=== PATIENT | male | born 1955 | race Caucasian/White ===

== ENCOUNTER 2017-08-12 19:00 | Observation (INO) | payer OTHER, SELFPAY ==
[~2017-08-12 19:00] MED LIST: ISOVUE-370 76%-LOCM 1 ML ONE
[2017-08-12 19:21] LABS: #Basophils 0.1 thou/uL (0.0-0.2); #Eosinphils 0.3 thou/uL (0.0-0.7); #Lymphocytes 1.8 thou/uL (1.20-3.40); #Monocytes 0.4 thou/uL (0.11-0.59); #Neutrophils 5.3 thou/uL (1.40-6.50); %Basophils 0.8 % (0.0-1.0); %Eosinophils 3.8 % (0.0-10.0); %Lymphocytes 23.4 % (21.0-51.0); %Monocytes 4.7 % (0.0-10.0); %Neutrophils 67.3 % (42.0-75.0); Hemoglobin 15.1 g/dL (14.0-18.0); Mean Corpuscular HGB CONC 33.8 g/dL (32.0-36.0); Mean Corpuscular Hemoglobin 32.8 pg (27.0-31.0); Platelet Count 253 thou/uL (130-400); Red Blood Cell (RBC) Count 4.59 mill/uL (4.70-6.10); White Blood Cell (WBC) Count 7.8 thou/uL (4.8-10.8)
[2017-08-12 19:29] LABS: PTT 27.3 SEC (22.9-36.1); Prothrombin Time 12.9 SEC (12.0-14.7)
[2017-08-12] MEDS ORDERED: Ondansetron HCl/PF 4 MG/2 ML Vial ONE (19:47)
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
[2017-08-12 19:49] LABS: ALT (SGPT) 15 U/L (8-55); AST (SGOT) 23 U/L (5-34); Albumin 4.7 g/dL (3.5-5.0); Alkaline Phosphatase 128 U/L (40-150); Anion Gap 15 mmol/L (10-20); BUN (Urea Nitrogen) 14 mg/dL (8.4-25.7); Bilirubin, Total 1.3 mg/dL (0.2-1.2); Calc. Creatinine Clearance 0 mL/min (70-130); Calcium 9.3 mg/dL (7.8-10.44); Carbon Dioxide 22 mmol/L (22-29); Chloride 109 mmol/L (98-107); Estimated GFR-MDRD Greater than 90; Globulin 2.8 g/dL (2.4-3.5); Glucose 86 mg/dL (70-105); Lipase 30 U/L (8-78); Potassium 4.1 mmol/L (3.5-5.1); Protein, Total 7.5 g/dL (6.0-8.3); Sodium 142 mmol/L (136-145)
[2017-08-12] MEDS ORDERED: Fentanyl 100 MCG/2 ML VIAL ONE (20:01)
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
[2017-08-12 20:07] LABS: Bilirubin Negative (Negative); Blood, Urine Negative (Negative); Clarity CLEAR (Clear); Glucose, Urine (Dipstick) Negative (Negative); Leukocyte Negative (Negative); Nitrite Negative (Negative); Protein, Urine (Dipstick) Negative (Neg-Trace); Specific Gravity, Urine 1.018 (1.002-1.036); Urobilinogen 0.2 mg/dL (0.2-1.0)
[2017-08-12 20:38] LABS: Medtox Reader # READER 4
[2017-08-12 20:39] LABS: Amphetamine Not Detected (NotDetected); Barbiturates Screen Not Detected (NotDetected); Benzodiazepine Screen Not Detected (NotDetected); Cocaine Metabolite Screen Not Detected (NotDetected); Medtox Control Line Valid? VALID (VALID); Methadone Not Detected (NotDetected); Methamphetamine Not Detected (NotDetected); Opiate Screen Not Detected (NotDetected); Oxycodone Screen Not Detected (NotDetected); Phencyclidine (PCP) Not Detected (NotDetected); THC/Cannabinoid Screen Not Detected (NotDetected); Tricyclic Screen Not Detected (NotDetected)
[2017-08-12] MEDS ORDERED: Ondansetron HCl/PF 4 MG/2 ML Vial IVP PRN (20:56)
[2017-08-12] MEDS ORDERED: hydrALAZINE 20 MG/ML VIAL SLOW IVP PRN (20:56)
[2017-08-12] MEDS ORDERED: Ibuprofen 600 MG TAB PO PRN (20:56)
[2017-08-12] MEDS ORDERED: Dextrose 50% Abboject 50 ML SYRINGE SLOW IVP PRN (20:56)
[2017-08-12] MEDS ORDERED: Dextrose 5% in Water 1,000 ML IV PRN (20:56)
[2017-08-12] MEDS ORDERED: Ondansetron ODT 4 MG TAB PO PRN (20:56)
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
[2017-08-12] MEDS: Oxazepam 10 MG CAP PO SCH (23:18)
[2017-08-12] MEDS: Sodium Chloride 0.9% 1,000 ML IV SCH (23:26)
[2017-08-13] MEDS: Acetaminophen 500 MG TAB PO PRN ×2 (00:26→08:16)
[2017-08-13 00:42] VITALS: BMI 24.4
[2017-08-13 04:23] LABS: #Eosinphils 0.2 thou/uL (0.0-0.7); #Lymphocytes 1.5 thou/uL (1.20-3.40); #Monocytes 0.3 thou/uL (0.11-0.59); #Neutrophils 6.5 thou/uL (1.40-6.50); %Basophils 0.3 % (0.0-1.0); %Lymphocytes 18.2 % (21.0-51.0); %Monocytes 3.5 % (0.0-10.0); %Neutrophils 76.1 % (42.0-75.0); Hemoglobin 12.8 g/dL (14.0-18.0); Mean Corpuscular HGB CONC 34.3 g/dL (32.0-36.0); Mean Corpuscular Hemoglobin 33.5 pg (27.0-31.0); Mean Corpuscular Volume 97.6 fl (80.0-94.0); Mean Platelet Volume 7.2 fL (7.4-10.4); Platelet Count 224 thou/uL (130-400); Red Blood Cell (RBC) Count 3.82 mill/uL (4.70-6.10); White Blood Cell (WBC) Count 8.5 thou/uL (4.8-10.8)
[2017-08-13 04:35] LABS: Alcohol 123 mg/dL (Less than 10); Anion Gap 14 mmol/L (10-20); BUN (Urea Nitrogen) 15 mg/dL (8.4-25.7); Calc. Creatinine Clearance 97 mL/min (70-130); Calcium 8.5 mg/dL (7.8-10.44); Carbon Dioxide 24 mmol/L (22-29); Chloride 106 mmol/L (98-107); Estimated GFR-MDRD 83; Glucose 135 mg/dL (70-105); Potassium 3.9 mmol/L (3.5-5.1); Sodium 140 mmol/L (136-145)
[2017-08-13] MEDS: Oxazepam 10 MG CAP PO SCH ×2 (05:03→12:15)
[2017-08-13] MEDS: Sodium Chloride 0.9% 1,000 ML IV SCH (05:05)
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
[2017-08-13 08:38] VITALS: TEMP 97.6
[2017-08-13] MEDS ORDERED: Folic Acid 1 MG TAB PO SCH (09:00)
[2017-08-13] MEDS ORDERED: traMADol HCl 50 MG TAB PO PRN (09:05)
[2017-08-13 12:20] VITALS: BP 116/70
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
--- NOTE | 2017-09-04 14:23 | EKG ---
Test Reason : Blood Pressure : / mmHG Vent. Rate : 089 BPM Atrial Rate : 089 BPM P-R Int : 174 ms QRS Dur : 080 ms QT Int : 350 ms P-R-T Axes : 077 074 070 degrees QTc Int : 425 ms Normal sinus rhythm Normal ECG Confirmed by JOSE CARLOS BERUMEN M.D. ([id number]), advertising editor JO LANG ([id number]) on 09/04/2017 2:21:39 PM Referred By: Confirmed By:JOSE CARLOS BERUMEN M.D.
== END 2017-08-13 12:31 | disposition home or self-care (01) ==
LOC: ERS 19:00 → SJJU 22:51
PROVIDERS: ADMIT Surgery; ATTEND Surgery
DX: R07.9 Chest pain, unspecified (principal); R10.816 Epigastric abdominal tenderness; G89.11 Acute pain due to trauma; F10.129 Alcohol abuse with intoxication, unspecified; F17.200 Nicotine dependence, unspecified, uncomplicated; F43.10 Post-traumatic stress disorder, unspecified; V54.5XXA Driver of pick-up truck or van injured in collision with heavy transport vehicle or bus in traffic accident, initial encounter; Y90.8 Blood alcohol level of 240 mg/100 ml or more
CPT/HCPCS: 36415; 70450; 71045; 71260; 72125; 74177; 80048; 80053; 80306; 80307; 81003; 83690; 85025; 85610; 85730; 86850; 86900; 86901; 93005; 96361; 96374; 96375; G0378; G0390; J2405; J3010